=== PATIENT | male | born 1945 | race Caucasian/White ===

== ENCOUNTER 2019-07-16 02:49 | Inpatient (IN) ==
[2019-07-16] MEDS ORDERED: NS 1,000 ML IV ONE ×3 (03:18→07:53)
[2019-07-16] MEDS ORDERED: G.I. COCKTAIL PO ONE (03:18)
[2019-07-16] MEDS ORDERED: ZOFRAN IV ONE ×2 (03:18→07:36)
[2019-07-16] MEDS ORDERED: PROTONIX IV ONE (03:21)
[2019-07-16] MEDS ORDERED: SODIUM CHLORIDE 0.9% INJ ONE ×2 (03:21→08:37)
--- NOTE | 2019-07-16 03:21 | PROVIDER DOCUMENTATION ---
HPI-Abdominal Pain/GI Problem - General Chief Complaint: Epigastric Pain Stated Complaint: ABD PAIN Time Seen by Provider: 07/16/19 03:05 Source: patient Allergies/Adverse Reactions: Patient Allergies Allergy/AdvReac Type Severity Reaction Status Date / Time No Known Allergies Allergy Verified 01/06/13 07:54 Home Medications: Home Medication List Medication Instructions Recorded Confirmed Last Taken Type Fluticasone 50 Mcg Nasal [place] 1 spray INTRANASAL DAILY 07/16/19 07/16/19 Unknown History [Flonase] Montelukast [Singulair] 10 mg PO DAILY 07/16/19 07/16/19 Unknown History Sildenafil Citrate 100 mg PO PRN PRN 07/16/19 07/16/19 Unknown History Telmisartan [Micardis] 80 mg PO DAILY 07/16/19 07/16/19 Unknown History - History of Present Illness-ABD Nature of Presenting Problems: Patient presents with the complaint of epigastric abdominal pain x 2 days. Denies any bad food exposure or sick contacts. Abdominal Pain Onset Location: reports: epigastric Pain Radiation: reports: no radiation Quality of Pain: reports: aching, burning Severity in ED: reports: moderate Onset/Duration: reports: 2 days ago Timing: reports: still present Activities at Onset: reports: eating Exposure to sick contacts?: No Modifying Factors: improves with: nothing Associated Symptoms: reports: denies symptoms Last BM: unsure Dark Stools Present?: reports: none noticed Rectal Bleeding: reports: none Rectal Pain: reports: none Emesis Description: reports: other (digested food) Bruising or Bleeding Gums?: No Similar Symptoms Previously?: No Recently seen or treated by another doctor?: No Review of Systems - Adult - REVIEW OF SYSTEMS - ADULT Constitutional: reports: no symptoms reported Eyes: reports: no symptoms reported Ears, Nose, Mouth & Throat: reports: no symptoms reported Cardiovascular: reports: no symptoms reported Respiratory: reports: no symptoms reported Gastrointestinal: reports: no symptoms reported Genitourinary: reports: no symptoms reported Musculoskeletal: reports: no symptoms reported Integumentary: reports: no symptoms reported Neurological: reports: no symptoms reported Psychiatric: reports: no symptoms reported Endocrine: reports: no symptoms reported Hematologic/Lymphatic: reports: no symptoms reported Allergic/Immunologic: reports: no symptoms reported All Other Systems: Reviewed and Negative Past History - Adult - PAST MEDICAL HISTORY-ADULT Review of Records: reports: Old Records Reviewed Major Childhood Illnesses: reports: denies history Cardiovascular: reports: denies history Respiratory: reports: denies history Gastrointestinal: reports: denies history Obstetrical/Gynecological: reports: denies history Genitourinary: reports: denies history Musculoskeletal: reports: denies history Neurological: reports: denies history Endocrine/Immune: reports: denies history Other Conditions: reports: denies history - IMMUNIZATION STATUS Childhood Immunizations: See Nurse Assessment Flu Vaccine: See Nurse Assessment - FAMILY HISTORY Family History: reviewed, not pertinent Physical Exam-General - PHYSICAL EXAM-ADULT Initial Vital Signs Reviewed: Yes - CONSTITUTIONAL General Appearance: appears well, alert, no apparent distress - EYES Eyes: PERRL/EOMI - HEAD, EARS, NOSE, MOUTH & THROAT HENMT: normocephalic/atraumatic, moist mucous membranes, normal ENT inspection - NECK Neck: non-tender, full range of motion, supple - RESPIRATORY Respiratory: chest non-tender, lungs clear, normal breath sounds, no pleuratic chest pain, no respiratory distress, no accessory muscle use - CARDIOVASCULAR Cardiovascular: normal peripheral pulses, regular rate, rhythm, no edema, no gallop, no JVD, no murmur - GASTROINTESTINAL (ABDOMEN) Abdominal Exam: soft, tenderness (epigastric) - LYMPHATIC Lymphatic: no adenopathy - MUSCULOSKELETAL Back Exam: normal inspection Progress - PLAN OF CARE/RESULTS Progress/Plan/Lab Results: Vital Signs - 8 hr 07/16/19 02:55 Temperature 98.6 F Pulse Rate 74 Respiratory Rate 20 Blood Pressure 197/120 O2 Sat by Pulse Oximetry 97 Orders Category Date Time Status FLAT/UPRIGHT ABD/1 VIEW CHEST [RAD] Stat Exams 07/16/19 03:08 Ordered AMYLASE [CHEM] Stat Lab 07/16/19 03:08 Uncollected CBC WITH ELECTRONIC DIFF [HEME] Stat Lab 07/16/19 03:08 Uncollected COMPREHENSIVE METABOLIC PANEL [CHEM] Stat Lab 07/16/19 03:08 Uncollected LIPASE [CHEM] Stat Lab 07/16/19 03:08 Uncollected URINALYSIS [URINALYSIS] Stat Lab 07/16/19 03:08 Uncollected Lido/Ramires Alk/Al&mg Hydrox [G.i. Cocktail] Med 07/16/19 03:18 Once 30 ml PO NOW ONE Ns 1000 ml IV Bolus X1 Med 07/16/19 03:18 Ordered 0.9% Sodium Chloride Inj [Ns] 1,000 ml IV 999 mls/hr Ondansetron [Zofran] Med 07/16/19 03:18 Once 4 mg IV NOW ONE EKG [EKG] Stat Ther 07/16/19 03:00 Ordered Result Diagrams: 07/16/19 03:35 07/16/19 03:35 - REASSESSMENT Reassessment #1 Time Reassessed: 04:59 Status: unchanged (continues to c/o abd pain despite intervention in the ED) Reassessment #2 Time Reassessed: 06:39 Status: improving (Pain improved. Spoke with Dr. Wiley who wants to get an ultrasound and then he will re-evaluate plan of care for this patient.) Reassessment #3 Time Reassessed: 07:21 Status: improving (Seen and examined by me. Case discussed with Dr. Boyd at shift change. Patient is in ultrasound, awaiting likely admission for cholecystitis. Patient is very hypertensive, but BP improved with pain meds. Dr. Wiley has been consulted and wants Zosyn and will follow) - CONSULTS/PCP/HOSPITALIST Notification #1 *Consult/PCP/Hospitalist*: Dr. Wiley (Surgery) Time Discussed: 06:34 Consult Disposition: other (will look at CT scan and call back with plan of care) #2 Consult: Asa Time Discussed: 07:41 Consult Disposition: Will see in ED, Admit - CHANGE OF SHIFT REPORT (ED Provider) 1 Report Given and Care Transferred to:: Dr. Solares Time of Transfer: 07:00 Items Pending: Ultrasound Results Departure - Departure Date of Disposition Decision: 07/16/19 Time of Disposition Decision: 07:41 DIAGNOSIS: Cholecystitis, acute Disposition: ADMITTED INPATIENT 09 Certified Medical Emergency: Emergent Condition: Stable Referrals and Follow-Ups: Franco Bray MD [Primary Care Provider] - - Critical Care Note This patient required my direct & personal management of CC.: No Attestation - Physician/ KAROL Attestation Patient care was provided by Advanced Practice Provider:: No The physician spent face to face time with patient:: Yes Advanced Practice Provider documentation review:: Supervising physician onsite and consulted in the evaluation and care of this patient. The physician did have a face to face encounter with the patient.
[2019-07-16 03:46] LABS: BASO# 0.02 X1000 (0.0-0.2); BASO% 0.2 % (0.0-0.8); EOS# 0.14 X1000 (0.0-0.7); EOS% 1.7 % (0.0-10.0); HEMATOCRIT 38.6 % (42.0-52.0); HEMOGLOBIN 12.7 g/dL (14.0-18.0); IMM GRAN# 0.02 X1000 (0.0-0.04); IMM GRAN% 0.2 % (0.0-0.5); LYMPH# 1.44 X1000 (1.2-3.4); LYMPH% 17.2 % (20.5-51.1); MCH 32.9 PG (27-31); MCHC 32.9 g/dL (33-37); MONO# 0.61 X1000 (0.11-0.59); MONO% 7.3 % (1.7-9.3); MPV 10.6 FL (7.4-10.4); NEUT# 6.16 X1000 (1.4-6.5); NEUT% 73.4 % (42.2-75.2); PLT 223 X1000 (130-400); RBC 3.86 XMIL (4.7-6.1); RDW 12.1 % (11.5-14.5); WBC 8.39 X1000 (4.8-10.8)
[2019-07-16 04:08] LABS: URINE SOURCE CLEAN CATCH
[2019-07-16 04:15] LABS: BILIRUBIN URINE NEGATIVE (NEGATIVE); BLOOD URINE NEGATIVE (NEGATIVE); COLOR STRAW; GLUCOSE URINE NEGATIVE (NEGATIVE); KETONE URINE TRACE mg/dL (NEGATIVE); LEUKOCYTES URINE NEGATIVE (NEGATIVE); NITRITE URINE NEGATIVE (NEGATIVE); PROTEIN URINE TRACE mg/dL (NEGATIVE); SP GRAVITY URINE 1.012; TURBIDITY URINE CLEAR (CLEAR); UROBILINOGEN URINE NORMAL (NORMAL)
[2019-07-16 04:16] LABS: UR EPITHELIAL CELLS <10 /HPF (<10); URINE BACTERIA NEGATIVE /HPF; URINE RBC <10 /HPF (<10); URINE WBC <10 /HPF (<10)
[2019-07-16 04:41] LABS: AGAP 16; ALB/GLOB RATIO 1.1; ALBUMIN 4.1 g/dL (3.5-5.0); ALKALINE PHOSPHATASE 72 U/L (32-122); AMYLASE 76 U/L (20-200); BUN 13 mg/dL (8-22); CALCIUM 9.2 mg/dL (8.8-10.2); CHLORIDE 103 mmol/L (98-107); COSMO 279; CREATININE 0.8 mg/dL (0.7-1.2); ESTIMATED GFR > 60; GLUCOSE 114 mg/dL (70-104); GOT 27 U/L (10-34); GPT 14 U/L (10-44); LIPASE 56 U/L (13-60); POTASSIUM 4.3 mmol/L (3.5-5.1); SODIUM 139 mmol/L (136-145); TCO2 20 mmol/L (25-35); TOTAL PROTEIN 7.9 g/dL (6.3-8.3)
[2019-07-16] MEDS ORDERED: MORPHINE IV ONE ×2 (04:58→08:37)
--- NOTE | 2019-07-16 05:22 | EKG Report ---
Test Performed on : 07/16/2019 03:07:20 AM Test Reason : severe epigastric pain Blood Pressure : / mmHG Vent. Rate : 065 BPM Atrial Rate : 065 BPM P-R Int : 194 ms QRS Dur : 094 ms QT Int : 420 ms P-R-T Axes : -03 -33 017 degrees QTc Int : 436 ms Normal sinus rhythm. Left axis deviation Abnormal ECG When compared with ECG of 06-JAN-2013 07:46, No significant change was found Unconfirmed Result
--- NOTE | 2019-07-16 05:38 | Diag Imaging Result Doc PS360 ---
EXAM: CT ABDOMEN/PELVIS W/O CONTRAST HISTORY: abd pain TECHNIQUE: CT abdomen and pelvis without oral or intravenous contrast COMPARISON: None. FINDINGS: Coronary artery atherosclerosis. No splenomegaly. No focal hepatic abnormality identified on this noncontrasted exam. Normal pancreas and adrenal glands. No renal stones or hydronephrosis. No perinephric inflammatory changes. There is a 2.4 cm exophytic hypodense left renal nodule believed to be a cyst. No aortic aneurysm. Moderate atherosclerosis. There are small para-aortic nodes. The gallbladder is distended. There appears to be sludge within it. There are adjacent inflammatory changes and wall thickening. No bowel obstruction. There are many scattered colonic diverticula. Urinary bladder is distended and normal. Normal prostate. No abscess. IMPRESSION: 1.Cholecystitis 2.Colonic diverticulosis 3.Likely left renal cyst This exam was performed using automated exposure control, adjustment of mA or kV according to patient size, and/or use of iterative reconstruction technique. Electronically signed by Steve Coleman 07/16/2019 5:36 AM
--- NOTE | 2019-07-16 06:47 | Diag Imaging Result Doc PS360 ---
FLAT/UPRIGHT ABD/1 VIEW CHEST - 07/16/2019 INDICATION: abdominal pain TECHNIQUE: COMPARISON: 01/06/2013 FINDINGS: The chest is clear. There is a nonobstructive bowel gas pattern. No free air or abnormal calcifications. Average amount of stool. IMPRESSION: Negative exam. Electronically signed by Shaun Moran 07/16/2019 6:44 AM
[2019-07-16] MEDS ORDERED: VASOTEC IV ONE (07:22)
[2019-07-16] MEDS ORDERED: ZOSYN 4.5 GM in NS 100 ML IV ONE (07:37)
[2019-07-16] MEDS ORDERED: BENTYL IM ONE (07:39)
[2019-07-16] MEDS ORDERED: MORPHINE IV PRN (07:53)
[2019-07-16] MEDS ORDERED: ZOFRAN IV PRN (07:53)
--- NOTE | 2019-07-16 07:56 | Diag Imaging Result Doc PS360 ---
US ABDOMEN-COMPLETE - 07/16/2019 INDICATION: RUQ pain COMPARISON: CT from earlier today FINDINGS: The liver is moderately fatty. No liver masses. No biliary dilation. Common bile duct measures 4.7 mm. There is some sludge in the gallbladder. No gallbladder distention or wall thickening. There is a left renal cyst measuring 2.4 cm. The pancreas, spleen, and right kidney are normal. Aorta, IVC, and main portal vein are patent. No free fluid. IMPRESSION: 1. Fatty liver. 2. Sludge in the gallbladder. No gallbladder inflammation. Electronically signed by Shaun Moran 07/16/2019 7:54 AM
[2019-07-16] MEDS ORDERED: PHENERGAN IV ONE (08:37)
--- NOTE | 2019-07-16 08:37 | Diag Imaging Result Doc PS360 ---
CHEST-1 VIEW - 07/16/2019 8:29 AM INDICATION: elevated lactate COMPARISON: 07/16/2019 3:20 AM FINDINGS: The lungs are normally expanded and clear. Heart size and mediastinal contours are normal. No pneumothorax or pleural effusion. IMPRESSION: Negative exam. Electronically signed by Shaun Moran 07/16/2019 8:35 AM
[2019-07-16] MEDS ORDERED: APRESOLINE IV ONE (09:35)
--- NOTE | 2019-07-16 09:44 | HISTORY AND PHYSICAL ---
CHIEF COMPLAINT: Abdominal pain. HISTORY OF PRESENT ILLNESS: This 73-year-old white male has been having a dull smoldering abdominal pain for approximately 3 days. He threw up Sunday night, but has been going about his business at home since that time. He stated that this dull moderate pain located at the top of his abdomen was made worse by eating. He has not had any fever, chills, cough, wheezing, or shortness of breath. He has had no chest pain or palpitations. On the morning he was admitted, he was awakened in the middle of the night with worsening pain. He vomited again and came to the hospital or was transported, I am not sure which. There he was found to have basically normal lab results, but CT scan without contrast revealed enlarged gallbladder with wall thickening and sludge consistent with cholecystitis. No other acute pathology was identified. Dr. Wiley was consulted, and the patient was admitted for inpatient treatment. PAST MEDICAL HISTORY: 1. Hypertension. 2. Monoclonal gammopathy of unknown significance. 3. History of melanoma of the left arm. 4. Seasonal/allergic rhinitis. 5. Male erectile dysfunction. PAST SURGICAL HISTORY: 1. Right knee meniscus, 2013. 2. Melanoma removed, left arm, 2014. 3. Sigmoid diverticulosis. SOCIAL HISTORY: The patient is . He lives with his . He is a former smoker who quit over 35 years ago. He does consume alcohol at a rate of approximately 2 beers per night. He does have a history of foreign travel, but none recently. FAMILY HISTORY: Significant for hypertension, hyperlipidemia, heart failure, and cancer. HEALTH HISTORY: 1. Patient had a Pneumovax in 2011. 2. Colonoscopy was [address] Luis. PHYSICAL EXAMINATION: VITAL SIGNS: Pulse rate of 86, temperature is afebrile, respiratory rate is 20, blood pressure is 181/90, 95% saturated on room air. It is noted that the patient is having abdominal pain at the time of these vital signs as I was present in the room. HEENT: Sclerae are anicteric. Oral mucosa appears adequately hydrated and of normal coloration. LUNGS: Clear to auscultation bilaterally. CARDIOVASCULAR: Regular at nearly 90 beats per minute at the time my examination. ABDOMEN: Shows a moderate distention, particularly in the upper portions of the abdomen. He does have occasional bowel sounds present, although they are hypoactive. He is tender in the epigastrium extending inferiorly. There is no focal right upper quadrant tenderness. EXTREMITIES: Show no peripheral edema. NEUROLOGIC: Cranial nerves are intact. PSYCHOLOGICALLY: The patient appears to be reasonably calm given the level of his abdominal pain. He is lying in bed moaning, and this did seem to get worse during the time of my examination. LABORATORY: White cell count 8.3, hemoglobin 12.7, carbon dioxide is 20. BUN 13, creatinine 0.8, glucose 114. Plasma lactate is 2.7. Urinalysis is normal. ASSESSMENT AND PLAN: 1. The patient is going to be admitted with abdominal pain and presumed cholecystitis. His previous study in the emergency room was completely non contrasted. I would rather have an intravenous contrast to make sure that there is not any ischemic bowel underlying this that we are dismissing. He seemed to be in reasonable shape, but his abdominal pain was worsening at the time of my examination. Dr. Wiley has been consulted, and any new findings with lab work and the contrasted CT will be relayed to him immediately. The patient will be started empirically on Zosyn. He will have morphine and Zofran for pain and nausea relief. We will keep intravenous fluids going. I am going to continue to check lactates, as well as regular lab work, to make sure that he is not getting septic from this. We will act accordingly if any changes warrant a change in plan. 2. The patient has a history of hypertension. He is on telmisartan. I am sure he has not taken his medication, but he was in considerable pain at the time of my examination, and thus that would account for the elevation in his blood pressure. Hopefully, we can get him a little more comfortable. This will take care of itself. Otherwise, we will have to institute some type of as-needed medication for blood pressure until he is taking oral 3. We are aware of the patient's history of melanoma. 4. The patient will likely require inpatient care for 2 to 3 days. If we go to surgery early, then he is likely to be discharged with less time involved for his complete hospital stay. I believe that the patient's symptomatology and lab work will drive our decision making at this point. cc: Franco Bray MD
[2019-07-16] MEDS ORDERED: DILAUDID IV PRN (11:45)
--- NOTE | 2019-07-16 12:09 | GENERAL SURGERY CONSULTATION ---
DATE: 07/16/2019 CHIEF COMPLAINT: Epigastric pain. HISTORY: This is a 73-year-old gentleman who began having some discomfort in his epigastrium a day or two ago. Last night, it became severe enough that he sought medical attention. He denies any similar previous illness. He denies any significant dyspepsia. He has had no other upper respiratory symptoms. His workup included the lab work which showed a normal white count and normal LFTs. His CT scan showed a dilated gallbladder and possible thickened wall, consistent with possible acute cholecystitis. His ultrasound, however, shows no thickening of the gallbladder wall and some sludge. His common duct is normal sized. PAST MEDICAL HISTORY: His past history is pertinent for hypertension, monoclonal gammopathy, history of melanoma in the left arm, seasonal allergic rhinitis, and some male erectile dysfunction, according to his medical doctor. PAST SURGICAL HISTORY: His previous surgeries include a right meniscectomy, melanoma removal of the left arm. MEDICATIONS AT HOME: Include Flonase 1 spray daily, sildenafil 100 mg p.o. p.r.n., Micardis 80 mg daily, and Singulair 10 mg daily. ALLERGIES: He has no known drug allergies. FAMILY HISTORY: Pertinent for hypertension, hyperlipidemia, heart failure, and cancer. SOCIAL HISTORY: He is . I think he is employed at home. He is a former smoker. He does drink alcohol nightly. There is no illicit drug use known. REVIEW OF SYSTEMS: As noted above. Otherwise, in the other 10 subsystems, is negative. PHYSICAL EXAMINATION: Vital Signs: He is afebrile, heart rate 106, blood pressure is 181/89. No cervical adenopathy. Bilateral breath sounds are clear. Heart has a regular rate and rhythm. Abdomen: Soft. He is mildly tender in the right upper quadrant. Pedal pulses are present. No peripheral edema. He is awake and alert. LABORATORY DATA: White count 8400, hemoglobin 12.7, hematocrit 38.6. Chemistry is fine. LFTs are normal. Lactate is 2.5. His other imaging is as noted above. ASSESSMENT: Probable biliary colic. PLAN: Pain relief. He does not appear to have any complicating features. If he develops complicating features or if we cannot control his pain, then we will proceed with surgery. cc: MD Franco Strickland MD
--- NOTE | 2019-07-16 13:33 | Diag Imaging Result Doc PS360 ---
EXAM: CT ABD/PELVIS W/IV CONT ONLY INDICATION: worsening abd pain, previous scan without contrast TECHNIQUE: This exam was performed using automated exposure control, adjustment of mA or kV according to patient size, and/or use of iterative reconstruction technique. COMPARISON: Unenhanced CT of the abdomen and pelvis performed earlier today. FINDINGS: There is subsegmental atelectasis at the lung bases that has worsened since the previous study. There is suggestion of very mild hepatic steatosis. Like the previous study, the gallbladder is distended. There is pericholecystic fluid but there is generalized mesenteric edema throughout the mid and upper abdomen. It is possible that this is simply a part of the generalized edema suggesting anasarca. However, by CT, cholecystitis cannot be excluded. There is no evidence of significant biliary dilatation. The spleen, pancreas, and adrenal glands are grossly unremarkable. A left renal cyst is again noted. The kidneys enhance normally. The urinary bladder is grossly unremarkable. The appendix is normal. There is advanced uncomplicated diverticulosis coli. There is a very small hiatal hernia. There is no evidence of bowel obstruction. The remainder of the GI tract is grossly unremarkable. IMPRESSION: 1.Persistent distended gallbladder with pericholecystic fluid. Although by CT, cholecystitis cannot be excluded, there is nonspecific generalized mesenteric edema as well. 2.Subsegmental atelectasis at the lung bases that has worsened since the previous study. 3.Otherwise, stable abdomen and pelvis as compared to the recent unenhanced CT. Electronically signed by Paul Connelly 07/16/2019 1:30 PM
[2019-07-16] MEDS: ZOSYN 3.375 GM in NS 50 ML IV SCH ×2 (13:42→20:49)
[2019-07-16 13:58] LABS: INR 0.94; PROTIME 12.6 Seconds (11.0-16.0)
[2019-07-16 13:59] LABS: PTT 26.8 Seconds (22.3-41.8)
--- NOTE | 2019-07-16 16:07 | GENERAL SURGERY PROGRESS NOTE ---
DATE: 07/16/2019 It is 3:53 p.m. Mr. Hammonds's pain is relieved much better now. He is really not tender. He is taking a little bit of liquid. I did talk with him and his and discussed the fact that if we saw deterioration in his clinical status, worsening of his lab work or an inability to control his pain that we would proceed with surgery, but if he got well and had no further problems and no further deterioration in his lab work, then perhaps he would not need any urgent surgery. So, we will re-evaluate in the morning. We will keep him n.p.o. after midnight and we will decide in the morning as to how to proceed. cc: MD Franco Strickland MD
[2019-07-17] MEDS: ZOSYN 3.375 GM in NS 50 ML IV SCH ×4 (02:24→22:02)
[2019-07-17 06:27] LABS: BASO# 0.01 X1000 (0.0-0.2); BASO% 0.2 % (0.0-0.8); EOS# 0.01 X1000 (0.0-0.7); EOS% 0.2 % (0.0-10.0); HEMATOCRIT 36.7 % (42.0-52.0); HEMOGLOBIN 12.3 g/dL (14.0-18.0); IMM GRAN# 0.03 X1000 (0.0-0.04); IMM GRAN% 0.5 % (0.0-0.5); LYMPH# 0.81 X1000 (1.2-3.4); LYMPH% 12.7 % (20.5-51.1); MCH 33.2 PG (27-31); MCHC 33.5 g/dL (33-37); MCV 98.9 FL (81-99); MONO% 12.5 % (1.7-9.3); MPV 10.6 FL (7.4-10.4); NEUT# 4.74 X1000 (1.4-6.5); NEUT% 73.9 % (42.2-75.2); PLT 196 X1000 (130-400); RBC 3.71 XMIL (4.7-6.1); RDW 12.4 % (11.5-14.5)
[2019-07-17 06:52] LABS: AGAP 14; ALB/GLOB RATIO 1.1; ALBUMIN 3.5 g/dL (3.5-5.0); ALKALINE PHOSPHATASE 184 U/L (32-122); BUN 13 mg/dL (8-22); CALCIUM 8.3 mg/dL (8.8-10.2); CHLORIDE 100 mmol/L (98-107); COSMO 276; ESTIMATED GFR > 60; GLUCOSE 98 mg/dL (70-104); GOT 621 U/L (10-34); GPT 387 U/L (10-44); MAGNESIUM 1.9 mg/dL (1.5-2.7); POTASSIUM 3.6 mmol/L (3.5-5.1); SODIUM 138 mmol/L (136-145); TCO2 24 mmol/L (25-35); TOTAL BILIRUBIN 4.91 mg/dL (0.20-1.00); TOTAL PROTEIN 6.8 g/dL (6.3-8.3)
--- NOTE | 2019-07-17 07:08 | GENERAL SURGERY PROGRESS NOTE ---
DATE: 07/17/2019 Mr. Hammonds slept comfortably last night. Denies any pain this morning. He is nontender to palpation. He is afebrile, heart rate 80, blood pressure 123/69. His white count is 6400, hemoglobin 12.3, hematocrit 36. His chemistry labs are pending. He apparently did not receive any pain medication since yesterday around 1 o'clock p.m. Today, we will check a HIDA scan on him to check patency of his cystic duct, which may help us decide whether we need to proceed or not. He understands this. cc: MD Franco Strickland MD
--- NOTE | 2019-07-17 10:03 | PROGRESS NOTE ---
DATE: 07/17/2019 SUBJECTIVE: The patient states that he feels fine today, but is concerned because his urine is very dark, it is in fact brownish red. He thought that there was blood in it, although he has no pain. He states his abdomen feels well. He has not had any nausea or vomiting. OBJECTIVE: Vital Signs: Temperature maximum 100.3 degrees just after I left his room. His vital signs are otherwise stable. General: On physical examination, the patient is alert, oriented, conversive and appropriate. Lungs: Clear. Cardiovascular: Regular. Abdomen: Soft. It is very mildly tender, but not nearly as much as it was yesterday. His urine container is a dark brownish orange. LABORATORY DATA: White cell count is normal. Hemoglobin stable. BUN and creatinine are still within the normal range. The patient's liver function tests have all ballooned into the 100s. His bilirubin is now over 4; whereas, it was normal yesterday. ASSESSMENT AND PLAN: 1. Although the patient's symptomatology has improved, his liver function tests have taken a turn for the worse, and he has spiked a moderate temperature. I discussed this with Dr. Wiley, and despite clinical improvement Dr. Wiley has agreed to take the patient to surgery today. I believe that this is a very roche choice and necessary to take place today. We will continue to monitor temperature, vital signs, and recheck labs in the morning. 2. We will continue pain control measures. 3. Continue to monitor blood pressure. The patient is nothing by mouth at the present time and not receiving blood pressure medications. cc: Franco Bray MD
[2019-07-17] MEDS ORDERED: FENTANYL ONE (13:01)
[2019-07-17] MEDS ORDERED: DIPRIVAN 1% ONE (13:06)
[2019-07-17] MEDS ORDERED: XYLOCAINE-MPF 2% ONE ×2 (13:07→13:59)
[2019-07-17] MEDS ORDERED: NORCURON ONE (13:07)
[2019-07-17] MEDS ORDERED: SODIUM CHLORIDE 0.9% 10 ML ONE ×3 (13:07→14:02)
[2019-07-17] MEDS ORDERED: HURRICAINE SPRAY (DOSE) ONE (13:14)
[2019-07-17] MEDS ORDERED: ROBINUL ONE ×2 (13:18→13:57)
[2019-07-17] MEDS ORDERED: MARCAINE 0.25% PF/EPI 1:200,000 ONE (13:23)
[2019-07-17] MEDS ORDERED: SODIUM CHLORIDE 0.9% ONE (13:23)
[2019-07-17] MEDS ORDERED: LR 1,000 ML ONE (13:23)
[2019-07-17] MEDS ORDERED: QUELICIN (DOSE) ONE (13:47)
[2019-07-17] MEDS ORDERED: NEO-SYNEPHRINE ONE (13:52)
[2019-07-17] MEDS ORDERED: NEOSTIGMINE ONE (13:59)
[2019-07-17] MEDS ORDERED: DECADRON ONE (14:00)
[2019-07-17] MEDS ORDERED: ZOFRAN ONE (14:00)
[2019-07-17] MEDS ORDERED: MORPHINE ONE (14:01)
--- NOTE | 2019-07-17 14:33 | Diag Imaging Result Doc PS360 ---
EXAM: OPERATIVE CHOLANGIOGRAM HISTORY: CHOLECYSTITIS TECHNIQUE: Intraoperative cholangiogram, two views COMPARISON: None. FINDINGS: Contrast fills the common bile duct. It has emptied into the duodenum. No stone or stricture. IMPRESSION: Normal intraoperative cholangiogram. Electronically signed by Steve Coleman 07/17/2019 2:31 PM
[2019-07-17] MEDS ORDERED: OFIRMEV 1000 MG/ISOTONIC SOLN 1,000 MG/100 ML BOTTLE ONE (15:06)
--- NOTE | 2019-07-17 15:30 | OPERATIVE NOTE ---
PROCEDURE DATE: 07/17/2019 PROCEDURE: Laparoscopic cholecystectomy with operative cholangiogram. SURGEON: Tristian Wiley MD. MAKE UP OPERATOR HELPER: Tamara Nick PREOPERATIVE DIAGNOSIS: Acute calculous cholecystitis. POSTOPERATIVE DIAGNOSIS: Acute calculous cholecystitis. FINDINGS: The cholangiogram revealed a normal size common duct with free flow in the duodenum. No intraluminal filling defects were seen. DESCRIPTION OF PROCEDURE: Satisfactory general endotracheal anesthesia was achieved. The abdomen is prepped and draped in a sterile fashion. We made a small circumumbilical incision inferiorly. We then introduced a 5 trocar Optiview technique into the abdominal cavity at the umbilicus. We insufflated through this trocar. Under direct visualization used a 5 trocar midclavicular line, 5 trocar near the anterior axillary line, and an 11 mm trocar in the midepigastrium. We placed the patient in reverse Trendelenburg and turned him to the left. The gallbladder was identified. It was noted to be thick-walled and inflamed with discoloration. We stuck an aspirating needle into it to aspirate it. We then grasped it with a ratcheted Allis clamp and reflected it cephalad. We then began dissection of the triangle of Calot. We did this mostly with a suction tip. We identified the cystic duct, clipped it near the junction of the gallbladder. We incised the cystic duct, introduced a Maury catheter and shot the cholangiogram and the findings above were noted. We removed the cholangiogram catheter, clipped the cystic duct on the opposite side of the cystic ductotomy x3, then transected the cystic duct. Cystic artery was identified and clipped proximally x2, distally x1, and then divided. We then used the cautery spatula to dissect the gallbladder away from the liver. We actually peeled it out of the gallbladder fossa. After complete separation of the gallbladder from the liver, we then introduced an EndoCatch through the epigastric trocar site, placed the gallbladder within the bag and delivered out of the abdominal cavity through the epigastric trocar site. We had to enlarge the fascial incision somewhat to do so. We looked back and irrigated, aspirated, achieved satisfactory hemostasis in the gallbladder fossa. We then desufflated. We placed 2-0 Polysorb stitches in the fascia in the epigastrium, one also at the umbilicus and then closed the skin at each incision with 4-0 Polysorb subcuticular stitches. Sterile OpSites were applied. He tolerated it well and was sent to the recovery room in satisfactory condition. cc: MD Franco Strickland MD
[2019-07-17] MEDS ORDERED: NORCO-10 PO PRN (15:57)
[2019-07-17] MEDS: PERIDEX MT SCH (22:03)
[2019-07-18] MEDS: ZOSYN 3.375 GM in NS 50 ML IV SCH (03:50)
[2019-07-18 06:40] LABS: BASO# 0.01 X1000 (0.0-0.2); BASO% 0.1 % (0.0-0.8); HEMATOCRIT 32.3 % (42.0-52.0); HEMOGLOBIN 10.9 g/dL (14.0-18.0); LYMPH# 0.66 X1000 (1.2-3.4); MCH 34.3 PG (27-31); MCHC 33.7 g/dL (33-37); MCV 101.6 FL (81-99); MONO# 0.62 X1000 (0.11-0.59); MONO% 8.5 % (1.7-9.3); NEUT# 6.04 X1000 (1.4-6.5); NEUT% 82.4 % (42.2-75.2); PLT 185 X1000 (130-400); RBC 3.18 XMIL (4.7-6.1); RDW 12.4 % (11.5-14.5); WBC 7.33 X1000 (4.8-10.8)
[2019-07-18 07:11] LABS: ALBUMIN 3.2 g/dL (3.5-5.0); DIRECT BILIRUBIN 1.7 mg/dL (0.00-0.20); TOTAL BILIRUBIN 2.99 mg/dL (0.20-1.00); TOTAL PROTEIN 6.4 g/dL (6.3-8.3)
[2019-07-18 07:53] VITALS: BP 136/75
[2019-07-18] MEDS: PERIDEX MT SCH (08:04)
--- NOTE | 2019-07-18 09:17 | GENERAL SURGERY PROGRESS NOTE ---
DATE: 07/18/2019 SUBJECTIVE: He is postop day 1 after laparoscopic cholecystectomy for acute and chronic calculous cholecystitis. He is doing generally well. He has had a good night. OBJECTIVE: Vital Signs: He is afebrile. Heart rate is 65, blood pressure 136/75. LABORATORY DATA: Shows a white count of 7300, hemoglobin 10.9, hematocrit 32. His total bilirubin has fallen down to 2.9, AST down to 266, ALT down to 270, alkaline phosphatase down to 165. ASSESSMENT AND PLAN: I think he can go home. We will write him something for pain. He will return to see me in the office in a week. We discussed wound care activity and diet. I will get the approval of Dr. Bray. cc: MD Franco Strickland MD
--- NOTE | 2019-07-18 10:06 | DISCHARGE SUMMARY ---
ADMISSION DATE: 07/16/2019 DISCHARGE DATE: DISCHARGE DIAGNOSIS: Acute cholecystitis. CONSULTATIONS: Tristian Wiley MD OPERATIVE PROCEDURE: Laparoscopic cholecystectomy. HOSPITAL COURSE: This 73-year-old white male presented with 2 days of abdominal pain which got acutely worse prior to admission. Initial workup in the emergency room found normal white count, no fever, but CT scan was highly suggestive of acute cholecystitis. This was confirmed by abdominal ultrasound. The patient was admitted to the hospital and given IV fluids and antibiotics. We were going to try to just mitigate symptoms and get him home in a stable fashion. Unfortunately, the following day, the patient's liver function tests and bilirubin showed a massive increase, and we decided to go ahead with laparoscopic cholecystectomy at Dr. Wiley's recommendation. The patient tolerated this procedure well. The first day postoperatively, the patient was afebrile. His vital signs were stable. The patient had eaten clear liquids and was eagerly desirous of discharge for home. Dr. Wiley was in agreement, and we discharged the patient home in good condition. I have arranged for the patient to come by my office and get his liver function tests rechecked in the middle of next week, and we will forward this to Dr. Wiley for the followup appointment that the patient has with him next Sunday. cc: Franco Bray MD
[2019-07-18] MEDS ORDERED: DILAUDID IV PRN (10:18)
== END 2019-07-18 10:53 | disposition home or self-care (01) | DRG 419 ==
LOC: ED 02:49 → 4N 08:23
PROVIDERS: ADMIT Internal Medicine; ATTEND Internal Medicine